=== PATIENT | female | born 1935 | race Caucasian/White ===

== ENCOUNTER 2017-07-11 14:42 | Inpatient (IN) | payer MEDICARE ==
[2017-07-11 15:49] VITALS: BP 133/72
[2017-07-12] MEDS ORDERED: Magnesium Hydroxide (MOM) 30 mL UDC PO PRN (11:19)
[2017-07-12] MEDS ORDERED: Maalox 30 mL Cup PO PRN (11:19)
[2017-07-12] MEDS: Multivitamin Tab PO SCH (13:12)
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
--- NOTE | 2017-07-12 18:22 | History & Physical ---
ADMIT DATE: 07/12/2017 PATIENT IDENTIFICATION: is an 81-year-old female. CHIEF COMPLAINT: "I am fine." HISTORY OF PRESENT ILLNESS: This is an 81-year-old female with history of Alzheimer's type dementia, hypertension, hypothyroidism, brought into the Emergency Room at [facility] for episode of agitation and multiple falls. The patient was evaluated and noted that the patient was also combative. The patient was placed on hold. The patient was medically managed and the patient was transferred to [facility] for further care. The patient does not provide a meaningful history. History is obtained from reviewing the chart. PAST MEDICAL HISTORY: Remarkable for: 1. Dementia. 2. Hypertension. 3. Hypothyroidism. 4. Degenerative joint disease. 5. Osteoporosis. MEDICATIONS AT HOME: Lorazepam, Synthroid, Aricept. PAST SURGICAL HISTORY: Includes total knee replacement. ALLERGIES: The patient is not allergic to medications. SOCIAL HISTORY: The patient lives in a care home. No significant alcohol or drug use. The patient has a previous history of smoking cigarette. FAMILY MEDICAL HISTORY: Unavailable. REVIEW OF SYSTEMS: Unable to obtain meaningful history from the patient. PHYSICAL EXAMINATION: GENERAL: An 81-year-old, alert, awake, following simple 1 step command, lying in the bed without any acute distress. VITAL SIGNS: Temperature 98, pulse is 74, respiratory rate 18, blood pressure 144/80. HEENT: Normocephalic, atraumatic. Extraocular muscles are intact. Tongue was pink and coated. Poor dentition noted. NECK: Supple, no JVD, no hepatojugular reflex, no lymphadenopathy, thyromegaly or carotid bruit. HEART: Both heart sounds are regular. No S3, no S4. CHEST AND LUNGS: Equal in expansion, no expiratory wheezing. ABDOMEN: Soft. No guarding, rigidity. Bowel sounds are normal. EXTREMITIES: No edema, peripheral pulses +1. No calf tenderness noted. Well-healed surgical scar for the total knee replacement noted. NEUROLOGIC: Alert, awake, moving upper and lower extremity, but not following any commands. AVAILABLE DIAGNOSTIC DATA: Performed in the Emergency Room, white count of 8, hemoglobin 14, platelet count of 216. Urinalysis is unremarkable. Glucose of 125, chloride of 107, CO2 of 25, BUN and creatinine is 14, anion gap of 16. Sodium 143. Chest x-ray, no infiltrate, no congestion. EKG, no ST changes representing acute ischemia. CLINICAL IMPRESSION: 1. Psychotic disorder exacerbation. 2. Alzheimer dementia. 3. Hypertension. 4. Hypothyroidism. 5. Degenerative joint disease. 6. High risk for fall. 7. Osteoporosis. PLAN: 1. Psychiatric evaluation and management, deferred to psychiatrist. 2. Resume her donepezil for her dementia, Synthroid for her hypothyroidism, continue to provide symptoms management along with fall precautions, general nursing care as well. We will follow this patient during the stay at the hospital. I sincerely thank you, Dr. Joselo Rankin for giving me opportunity to participate in the patient of yours. JOB# [id number]
--- NOTE | 2017-07-13 09:29 | Diagnostic Imaging Report ---
Portable chest x-ray HISTORY: Cough, shortness of breath The heart is enlarged. No acute focal pulmonary processes. Old right rib fractures are seen. IMPRESSION: 1. No acute abnormalities 2. Cardiomegaly 3. Old right rib fractures 4. Surgical clips noted within the left neck area.
[2017-07-13] MEDS: Multivitamin Tab PO SCH (10:33)
--- NOTE | 2017-07-13 22:39 | Progress Notes ---
DATE: SUBJECTIVE: The patient seen and examined. The patient does not provide a meaningful history. The patient discussed with nursing staff about 24 hour in. PHYSICAL EXAMINATION: VITAL SIGNS: Temperature 97, pulse is 64, respiratory rate 18, blood pressure 133/68. HEENT: No facial asymmetry. NECK: Supple, no JVD, no lymphadenopathy. HEART: Regular. CHEST: Lung equal in expansion with no expiratory wheezing. ABDOMEN: Soft. EXTREMITIES: No edema. NEUROLOGIC: Alert, awake, follows commands. SKIN: However, bruises noted. CLINICAL IMPRESSION: 1. Psychotic disorder. 2. Alzheimer's dementia. 3. Hypertension. 4. Hypothyroidism. 5. Degenerative joint disease. 6. High risk for fall. 7. Osteoporosis. PLAN: 1. Psychotic evaluation deferred to psychiatrist. 2. Aricept. 3. Monitor blood pressure. 4. Synthroid. 5. Calcium with vitamin D. 6. Fall precaution. 7. Nursing care. 8. We will follow this patient during the stay in the hospital. JOB# [id number]
[2017-07-14] MEDS: Multivitamin Tab PO SCH (16:26)
--- NOTE | 2017-07-15 00:22 | Progress Notes ---
DATE: IDENTIFICATION: An 81-year-old female. SUBJECTIVE: The patient seen and examined. The patient is lying in the bed, unable to get meaningful history from the patient. Review nurse's notes as well as discussed with staff. PHYSICAL EXAMINATION: On today's exam, VITAL SIGNS: Temperature 97.7, pulse is 82, respiratory rate 18, blood pressure 104/61. HEENT: No facial asymmetry. NECK: Supple, no JVD, no lymphadenopathy or thyromegaly. HEART: Both heart sounds are regular. CHEST: Lung equal in expansion. No wheezing, no crackles. ABDOMEN: Soft. No guarding, rigidity. Bowel sounds are present. No palpable mass. EXTREMITIES: No edema. NEUROLOGIC: Alert, awake, follows command. SKIN: Exam remarkable for multiple bruises noted, but no petechia, no purpura. MEDICATIONS: Medication administration record was reviewed. CLINICAL IMPRESSION: 1. Psychiatric disorder. 2. Alzheimer's dementia. 3. Hypertension. 4. Hypothyroidism. 5. Degenerative joint disease. 6. High risk for fall. 7. Osteoporosis. PLAN: 1. Psychiatric evaluation and management deferred to psychiatrist. 2. Symptoms management. 3. Continue Synthroid. 4. General nursing care. 5. Nutritional support. 6. Care plan reviewed and discussed with staff. JOB# [id number]
[2017-07-15] MEDS: Levothyroxine 0.05 Mg Tab PO SCH (09:34)
[2017-07-15] MEDS: Multivitamin Tab PO SCH (09:34)
--- NOTE | 2017-07-15 09:49 | Progress Notes ---
DATE: 07/12/2017 SUBJECTIVE: Chart reviewed and the patient interviewed. Also discussed the patient's condition with the staff and reviewed records and labs. The patient is still crying and have crying spells and calling asking for her mother to come to help her. The patient also is still irritable and agitated. She also gets aggressive with the staff and striking out during helping her with her ADLs. The patient also is refusing to eat or drink and also refusing to take medications because of her confusion and agitation. ASSESSMENT: The patient is still confused and agitated. TREATMENT PLAN: We will continue to monitor her behavior and her condition closely. Also, we will place the patient on 5250 hold. Also, continue to work on her anger and her poor impulse control and adjusting psychotropic medications. JOB# [id number]
--- NOTE | 2017-07-15 10:46 | Progress Notes ---
DATE: 07/13/2017 SUBJECTIVE: Chart reviewed and the patient interviewed. Also, discussed the patient's condition with the staff and reviewed records and labs. The patient is highly agitated and in irritable mood. The patient is banging wheelchair side. She also has still difficulty taking medications and medications still needs adjustment. She also still has episodes of yelling and screaming at times then laughing at others. ASSESSMENT: The patient is still psychotic and agitated. TREATMENT PLAN: We will increase Seroquel to 50 mg 3 times a day and will continue to follow up her behavior and her condition closely. [facility]# [id number]
--- NOTE | 2017-07-15 11:45 | Progress Notes ---
DATE: 07/14/2017 SUBJECTIVE: Chart reviewed and the patient interviewed. Also discussed the patient's condition with the staff and reviewed records and labs. The patient still has episodes of yelling and screaming. The patient also is talking to imaginary objects in the room and talking to herself and she is still actively hallucinating. She also still has episodes of agitation and irritability with difficulty redirecting her. Otherwise, the patient is compliant with taking medications with no side effects of medications. ASSESSMENT: The patient is still psychotic and agitated. TREATMENT PLAN: Continue monitoring her behavior and condition closely. Also, we will increase Seroquel to 50 mg 3 times a day and we will continue to follow up. [facility]# [id number]
--- NOTE | 2017-07-15 13:28 | Progress Notes ---
DATE: 07/15/2017 SUBJECTIVE: Chart reviewed and the patient interviewed. Also, discussed the patient's condition with the staff and reviewed records and labs. The patient continued to be extremely irritable and she is still confused. The patient also is still combative and hostile. The patient tried to grab staff during helping her with her ARUN hose or during redirecting her. The patient also is still suspicious and is still delusional and paranoid. Also, in regards to medications the patient has been taking medications on and off. ASSESSMENT: The patient is still agitated and irritable and needs directions. TREATMENT PLAN: Continue to monitor her behavior and her condition closely. Also, we will increase Aricept to 10 mg every day and we will increase Seroquel to 75 mg 3 times a day. Also, continue to work on behavioral modification and her poor impulse control. Also, discussed with wrapper caser discharge plans and hopefully the patient will be able to return to [facility] when stable. [facility]# [id number]
[2017-07-16] MEDS: Levothyroxine 0.05 Mg Tab PO SCH (09:02)
[2017-07-16] MEDS: Multivitamin Tab PO SCH (09:02)
--- NOTE | 2017-07-16 12:53 | General Progress Note ---
Subjective - Review of Systems Subjective: Patient is seen and examined. Unable to get meaningful history. Discussed with staff re:their concerns and treatment plan. Objective - Results Recent Labs: Laboratory Last Values POC Glucose 82 MG/DL (70 - 105) 07/11/17 16:07 - Physical Exam Vitals and I&O: Vital Signs Temp 97.8 F 07/15/17 20:28 Pulse 94 07/15/17 20:28 Resp 18 07/15/17 20:28 BP 94/54 07/15/17 20:28 Pulse Ox 96 07/15/17 20:28 Intake & Output 07/15/17 07/16/17 07/16/17 18:59 06:59 18:59 Intake Total 720 120 Balance 720 120 Intake: Oral 720 120 Other: # Voids 3 1 # Bowel Movements 0 Active Medications: Current Medications Acetaminophen (Tylenol) 650 mg PO Q4H PRN PRN Reason: Mild Pain / Temp above 100 Stop: 09/10/17 11:18 Al Hydrox/Mg Hydrox/Simethicone (Maalox) 30 ml PO Q4H PRN PRN Reason: GI DISTRESS Stop: 09/10/17 11:18 Donepezil HCl (Aricept) 10 mg PO HS MICHAEL Stop: 09/13/17 20:59 Last Admin: 07/15/17 20:14 Dose: 10 mg Levothyroxine Sodium (Synthroid) 0.05 mg PO DAILY MICHAEL Stop: 09/13/17 08:59 Last Admin: 07/16/17 09:02 Dose: Not Given Lorazepam (Ativan) 0.5 mg PO Q4H PRN; Protocol PRN Reason: Agitation Stop: 09/10/17 11:18 Last Admin: 07/14/17 08:40 Dose: 0.5 mg Magnesium Hydroxide (Milk Of Magnesia) 30 ml PO HS PRN PRN Reason: Constipation Multivitamins/Vitamin C (Theragran) 1 tab PO DAILY MICHAEL Stop: 09/10/17 11:59 Last Admin: 07/16/17 09:02 Dose: Not Given Quetiapine Fumarate (Seroquel) 75 mg PO TID MICHAEL PRN Reason: Protocol Stop: 09/13/17 06:45 Last Admin: 07/16/17 09:00 Dose: Not Given Zolpidem Tartrate (Ambien) 5 mg PO HS PRN PRN Reason: Insomnia Stop: 09/09/17 19:59 General: Alert, No acute distress HEENT: Atraumatic, EOMI Neck: Supple, JVD Cardiovascular: Regular rate, Normal S1, Normal S2, Systolic murmurs Lungs: Clear to auscultation Abdomen: Bowel sounds, Soft Extremities: Other (No edema.) Neurological: Other (Not following commands.) Assessment/Plan - Assessment Assessment: Alzheimer's dementia. Hypothyrodism. Hypertension. DJD Osteoporosis. fall risk. - Plan Plan: Psych meds and follow up. Dementia meds. Synthroid. Monitor vitals and behavior Fall precautions general nursing care. Symptoms control. Medication management. Discussed with staff. Nutritional Asmnt/Malnutr-PDOC - Dietary Evaluation Malnutrition Findings (Please click <Entered> for more info): Nutritional Asmnt/Malnutrition Start: 07/15/17 14: 59 Text: Status: Complete Freq: Document 07/15/17 14:59 DESTIN (Rec: 07/15/17 15:08 [facility] Nutritional Asmnt/Malnutrition Patient General Information Nutritional Screening Moderate Risk Diagnosis psychosis Pertinent Medical Hx/Surgical Hx dementia, HTN, hypothroidism, DJD, osteoporosis Subjective Information Pt seen sleeping in dustin-chair in dining room. RN reported pt threw tray on floor at breakfast and lunch, PO intake depended on mood. Current Diet Order/ Nutrition Support low sodium Pertinent Medications theragran, seroquel Pertinent Labs 2/ POC 82 Nutritional Hx/Data Height 1.52 m Height (Calculated Centimeters) 152.4 Current Weight (lbs) 61.235 kg Weight (Calculated Kilograms) 61.2 Weight (Calculated Grams) 97716.0 [employer] Body Weight 100 % [employer] Body Weight 135 Body Mass Index (BMI) 26.4 Weight Status Overweight GI Symptoms GI Symptoms None Last BM none Difficult in: None Skin Integrity/Comment: intact Current %PO Poor (25-49%) Estimated Nutritional Goals BEE in Kcals: Using Current wt Calories/Kcals/Kg 25-30 Kcals Calculated 0702-9503 Protein: Using Current wt Protein g/k Protein Calculated 61 Fluid: ml 1525-1830ml (1ml/kcal) Nutritional Problem 1. Problem Problem inadeuqate food intake Etiology cognition, mental status Signs/Symptoms: PO intake 25% Malnutrition Alert Protein-Calorie Malnutrition N/A Is there a minimum of two criteria No selected? Query Text:Check all the applicable criteria. A minimum of two criteria are recommended for diagnosis of either severe or non-severe malnutrition. Intervention/Recommendation Comments 1. Continue with current diet as ordered. Assist with feeding as needed. 2. Monitor PO intake, wt, labs and skin integrity 3. F/U as high risk in 2-3 days, 07/17-07/18 Expected Outcomes/Goals Expected Outcomes/Goals 1. PO intake to meet at least 75% of nutritional needs. 2. Wt stability, skin to remain intact, labs to approach WNL.
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
--- NOTE | 2017-07-17 07:21 | Progress Notes ---
DATE: 07/17/2017 SUBJECTIVE: The patient with history of dementia, in a Cassandra chair, yelling, screaming, paranoid, delusional, stating "they stole me." She is trying to get out of the Cassandra chair, impulsive, unpredictable, early childhood worker awakenings, needing prompting. MEDICATIONS: Reviewed. ASSESSMENT: The patient remains symptomatic, unruly, trying to get out of the Cassandra chair, paranoid. PLAN: We will continue to monitor and work on her orientation and titrate medications as needed, consider addition of Namenda. JOB# [id number]
[2017-07-17] MEDS: Levothyroxine 0.05 Mg Tab PO SCH (08:54)
[2017-07-17] MEDS: Multivitamin Tab PO SCH (08:55)
--- NOTE | 2017-07-17 15:26 | General Progress Note ---
Subjective - Review of Systems Subjective: Patient is seen and examined. Discussed with staff re:their concerns and treatment plan. Objective - Results Recent Labs: Laboratory Last Values POC Glucose 82 MG/DL (70 - 105) 07/11/17 16:07 - Physical Exam Vitals and I&O: Vital Signs Temp 97.6 F 07/16/17 20:00 Pulse 97 07/16/17 20:00 Resp 18 07/16/17 20:00 BP 139/90 07/16/17 20:00 Pulse Ox 96 07/16/17 20:00 Intake & Output 07/16/17 07/17/17 07/17/17 18:59 06:59 18:59 Intake Total 960 120 240 Balance 960 120 240 Intake: Oral 960 120 240 Other: # Voids 3 3 # Bowel Movements 0 Active Medications: Current Medications Acetaminophen (Tylenol) 650 mg PO Q4H PRN PRN Reason: Mild Pain / Temp above 100 Stop: 09/10/17 11:18 Al Hydrox/Mg Hydrox/Simethicone (Maalox) 30 ml PO Q4H PRN PRN Reason: GI DISTRESS Stop: 09/10/17 11:18 Donepezil HCl (Aricept) 10 mg PO HS MICHAEL Stop: 09/13/17 20:59 Last Admin: 07/16/17 20:54 Dose: 10 mg Levothyroxine Sodium (Synthroid) 0.05 mg PO DAILY MICHAEL Stop: 09/13/17 08:59 Last Admin: 07/17/17 08:54 Dose: 0.05 mg Lorazepam (Ativan) 0.5 mg PO Q4H PRN; Protocol PRN Reason: Agitation Stop: 09/10/17 11:18 Last Admin: 07/17/17 14:25 Dose: 0.5 mg Magnesium Hydroxide (Milk Of Magnesia) 30 ml PO HS PRN PRN Reason: Constipation Memantine (Namenda) 5 mg PO DAILY MICHAEL Stop: 09/15/17 08:59 Last Admin: 07/17/17 08:55 Dose: 5 mg Multivitamins/Vitamin C (Theragran) 1 tab PO DAILY MICHAEL Stop: 09/10/17 11:59 Last Admin: 07/17/17 08:55 Dose: 1 tab Quetiapine Fumarate (Seroquel) 75 mg PO TID MICHAEL PRN Reason: Protocol Stop: 09/13/17 06:45 Last Admin: 07/17/17 14:25 Dose: 75 mg Zolpidem Tartrate (Ambien) 5 mg PO HS PRN PRN Reason: Insomnia Stop: 09/09/17 19:59 Last Admin: 07/16/17 20:54 Dose: 5 mg General: Alert, No acute distress HEENT: Atraumatic, EOMI Neck: Supple, JVD Cardiovascular: Regular rate, Normal S1, Normal S2, Systolic murmurs Lungs: Clear to auscultation Abdomen: Bowel sounds, Soft Extremities: Other (No edema.) Neurological: Other (Not following commands.) Assessment/Plan - Assessment Assessment: Alzheimer's dementia. Hypothyrodism. Hypertension. DJD Osteoporosis. fall risk. - Plan Plan: Psych meds and follow up. Dementia meds as per psych. Synthroid. Monitor vitals and behavior Fall precautions. Continue current care. general nursing care. Symptoms control. Medication management. Discussed with staff. Nutritional Asmnt/Malnutr-PDOC - Dietary Evaluation Malnutrition Findings (Please click <Entered> for more info): Nutritional Asmnt/Malnutrition Start: 07/15/17 14: 59 Text: Status: Complete Freq: Document 07/15/17 14:59 [facility]OOR[facility] (Rec: 07/15/17 15:08 [email or web address] Nutritional Asmnt/Malnutrition Patient General Information Nutritional Screening Moderate Risk Diagnosis psychosis Pertinent Medical Hx/Surgical Hx dementia, HTN, hypothroidism, DJD, osteoporosis Subjective Information Pt seen sleeping in dustin-chair in dining room. RN reported pt threw tray on floor at breakfast and lunch, PO intake depended on mood. Current Diet Order/ Nutrition Support low sodium Pertinent Medications theragran, seroquel Pertinent Labs 07/11 POC 82 Nutritional Hx/Data Height 1.52 m Height (Calculated Centimeters) 152.4 Current Weight (lbs) 61.235 kg Weight (Calculated Kilograms) 61.2 Weight (Calculated Grams) 56588.0 [place] Body Weight 100 % [place] Body Weight 135 Body Mass Index (BMI) 26.4 Weight Status Overweight GI Symptoms GI Symptoms None Last BM none Difficult in: None Skin Integrity/Comment: intact Current %PO Poor (25-49%) Estimated Nutritional Goals BEE in Kcals: Using Current wt Calories/Kcals/Kg 25-30 Kcals Calculated 7426-6092 Protein: Using Current wt Protein g/k Protein Calculated 61 Fluid: ml 1525-1830ml (1ml/kcal) Nutritional Problem 1. Problem Problem inadeuqate food intake Etiology cognition, mental status Signs/Symptoms: PO intake 25% Malnutrition Alert Protein-Calorie Malnutrition N/A Is there a minimum of two criteria No selected? Query Text:Check all the applicable criteria. A minimum of two criteria are recommended for diagnosis of either severe or non-severe malnutrition. Intervention/Recommendation Comments 1. Continue with current diet as ordered. Assist with feeding as needed. 2. Monitor PO intake, wt, labs and skin integrity 3. F/U as high risk in 2-3 days, 07/17-07/18 Expected Outcomes/Goals Expected Outcomes/Goals 1. PO intake to meet at least 75% of nutritional needs. 2. Wt stability, skin to remain intact, labs to approach WNL.
[2017-07-18] MEDS: Multivitamin Tab PO SCH (10:00)
[2017-07-18] MEDS: Levothyroxine 0.05 Mg Tab PO SCH (10:00)
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
[2017-07-19] MEDS: Levothyroxine 0.05 Mg Tab PO SCH (08:58)
[2017-07-19] MEDS: Multivitamin Tab PO SCH (08:59)
[2017-07-19] MEDS ORDERED: Haloperidol Lactate 5 mg/mL 1mL Vial IM ONE (10:17)
--- NOTE | 2017-07-20 06:02 | Progress Notes ---
DATE: 07/19/2017 SUBJECTIVE: An 81-year-old female placed on a hold. She was demented, greatly disabled, screaming "get out", "I don't want to talk to people", banging on her Cassandra chair, combative, requiring emergency medications this morning, and aggressive. MEDICATIONS: Noted. ASSESSMENT: The patient remains symptomatic, psychotic, yelling and screaming, and confused. PLAN: Give IM Haldol cocktail today. JOB# [id number]
[2017-07-20] MEDS: Multivitamin Tab PO SCH ×2 (08:59→09:07)
[2017-07-20] MEDS: Levothyroxine 0.05 Mg Tab PO SCH ×2 (08:59→09:07)
[2017-07-21] MEDS: Levothyroxine 0.05 Mg Tab PO SCH (10:00)
[2017-07-21] MEDS: Multivitamin Tab PO SCH (10:00)
--- NOTE | 2017-07-21 20:36 | Progress Notes ---
DATE: SUBJECTIVE: Chart reviewed and the patient interviewed. Also discussed the patient's condition with the staff and reviewed records and labs. The patient is still in irritable mood and she is still easily agitated. The patient also still have episodes of yelling and screaming with difficulty following staff directions. She also is still restless and she still has severe mood swings. Otherwise, the patient is compliant with taking her medications with no side effect of medications. ASSESSMENT: The patient is still agitated and psychotic. TREATMENT PLAN: We will continue monitoring her behavior and her condition closely. Also, I increased Seroquel yesterday to 100 mg 3 times a day and will continue same dose. Also, continue to work on her irritability and anger and continue to follow up. JOB# [id number]
--- NOTE | 2017-07-21 20:41 | Progress Notes ---
DATE: 07/20/2017 SUBJECTIVE: Chart reviewed. The patient interviewed. Also, discussed the patient's condition with the staff and reviewed records and labs. The patient is still easily agitated and she is still in angry and in irritable mood. She also still has episodes of paranoia and is still suspicious. She also is still confused and she still needs lots of redirections. ASSESSMENT: The patient is still confused and needs lots of redirections. TREATMENT PLAN: Continue to monitor her behavior and her condition closely. Also, continue adjusting psychotropic medications and work on behavioral modifications. Also, discussed with residential case manager discharge plans and placement issue. JOB# [id number]
--- NOTE | 2017-07-21 21:44 | Progress Notes ---
DATE: PATIENT IDENTIFICATION: An 81-year-old female. SUBJECTIVE: The patient seen and examined. The patient is sitting in the chair, unable to get meaningful history from the patient. Available nurse's notes reviewed. PHYSICAL EXAMINATION: VITAL SIGNS: Temperature 98.3, pulse 86, respiratory rate 18, blood pressure 144/85. HEENT: No facial asymmetry. Poor dentition noted. NECK: Supple. No JVD. No lymphadenopathy. HEART: Both heart sounds are regular. CHEST: Lung equal in expansion. No wheezing. No crackles. ABDOMEN: Soft. No guarding or rigidity. Bowel sounds are present. EXTREMITIES: No edema. NEUROLOGIC: Not following any commands. CLINICAL IMPRESSION: 1. Alzheimer's dementia. 2. Hypertension. 3. Hypothyroidism. 4. Degenerative joint disease. 5. Osteoporosis. 6. Fall risk. PLAN: 1. Psych medication. 2. Psychiatry followup. 3. Aricept. 4. Synthroid. 5. Monitor blood pressure. 6. Antihypertensive medicine. 7. Fall precautions. 8. General nursing care. 9. Symptoms control. 10. Nutritional support. 11. Care plan reviewed and discussed with staff. JOB# [id number]
--- NOTE | 2017-07-22 07:51 | Discharge Summary ---
DATE OF DISCHARGE: 07/22/2017 DATE OF DISCHARGE: 07/22/2017. FINAL DIAGNOSIS/PRIMARY DIAGNOSIS: Unspecified psychosis. SECONDARY DIAGNOSIS: Dementia, moderate to severe, with psychotic features. MEDICAL DIAGNOSIS: Hypothyroidism. REASON FOR HOSPITALIZATION: The patient was admitted to the hospital because of increased agitation and irritability and the patient was aggressive in the assisted living where she lives and she was not able to follow directions. HOSPITAL COURSE: The patient continued to be agitated and in irritable mood. The patient also was unable to follow staff directions. She also had episodes of yelling and screaming. The patient was given Seroquel and the dose adjusted to 100 mg 3 times a day, that helped the patient's agitation and irritability. Gradually, the patient's affect was brighter. She was calmer and easier to redirect her. The patient was discharged from the hospital. Physical exam of the patient showed hypothyroidism. The patient has no major medical problems while in the hospital. AFTER DISCHARGE PLANS: The patient discharged from the hospital and then to [facility] where she was living before with plans to be followed up there by the psychiatrist of the facility. EXPECTED OUTCOME AFTER DISCHARGE: Fair if the patient continued to take her psychotropic medications and followup. JOB# [id number]
[2017-07-22] MEDS: Multivitamin Tab PO SCH (08:53)
[2017-07-22] MEDS: Levothyroxine 0.05 Mg Tab PO SCH (08:53)
== END 2017-07-22 14:35 | DRG 885 ==
LOC: GERO 14:42
PROVIDERS: ADMIT Psychiatry & Neurology Psychiatry; ATTEND Psychiatry & Neurology Psychiatry
DX: F29 Unspecified psychosis not due to a substance or known physiological condition (principal); F02.81 Dementia in other diseases classified elsewhere, unspecified severity, with behavioral disturbance; N39.0 Urinary tract infection, site not specified; G30.9 Alzheimer's disease, unspecified; I10 Essential (primary) hypertension; E03.9 Hypothyroidism, unspecified; M19.90 Unspecified osteoarthritis, unspecified site; Z91.81 History of falling; M81.0 Age-related osteoporosis without current pathological fracture; Z87.891 Personal history of nicotine dependence
CPT/HCPCS: 71045-TC; 82948-90; J1200; J1630; Z7610